=== PATIENT | female | born 1960 | race Caucasian/White ===

== ENCOUNTER 2025-02-13 13:07 | Outpatient (CLI) | payer OTHER, SELFPAY | END 2025-02-13 13:08 | disposition home or self-care (01) | LOC: ANHAUDIO 13:08 | PROVIDERS: PCP Internal Medicine; Visit Provider Otolaryngology Otolaryngology/Facial Plastic Surgery | DX: H91.93 Unspecified hearing loss, bilateral (principal) | CPT/HCPCS: 92557; 92567 ==